=== PATIENT | female | born 1940 | race Caucasian/White ===

== ENCOUNTER 2019-12-29 06:45 | Day surgery (SDC) | payer MEDICARE, BC ==
[2019-12-29] VITALS (10 sets, daily range): BP systolic 91–127; BP diastolic 55–74; PULSE 72–111; TEMP 97.8–98.4
[~2019-12-29] VITALS: Ht 172.7 cm; Wt 79.5 kg
--- NOTE | 2019-12-29 08:45 | NUR ---
TO RM AT 0725 FROM RADILOLOGY. CALL LIGHT IN REACH SON AT BEDSIDE.
[2019-12-29] MEDS ORDERED: PULMICORT0.5 MG/2 M IH (08:53)
[2019-12-29] MEDS ORDERED: BROVANA15 MCG/2 M IH (08:53)
[2019-12-29] MEDS ORDERED: FLONASEALLERGY NS (08:54)
[2019-12-29] MEDS ORDERED: LASIX 80MG TABL80 MG PO (08:55)
[2019-12-29] MEDS ORDERED: GINGKO PO (08:56)
[2019-12-29] MEDS ORDERED: XALATAN EYE DROPS OD (08:56)
[2019-12-29] MEDS ORDERED: TOPROL XL 50MG50 MG PO (08:57)
[2019-12-29] MEDS ORDERED: LIPITOR20 MG PO (08:58)
[2019-12-29] MEDS ORDERED: NORCO 325 MG-51 TAB PO (08:58)
[2019-12-29] MEDS ORDERED: OXYGEN MC (08:59)
[2019-12-29] MEDS ORDERED: PREVACID 30MG30 M1 PO (09:00)
[2019-12-29] MEDS ORDERED: THEO-24400 MG PO (09:02)
[2019-12-29] MEDS ORDERED: PROPYLTHIOURACI50 M1 PO (09:02)
[2019-12-29] MEDS ORDERED: ZETIA 10MG TAB10 MG PO (09:03)
[2019-12-29] MEDS ORDERED: BETIMOL 0.5% OPH5 ML OD (09:03)
[2019-12-29] MEDS ORDERED: MULTIPLE VITAMI1 CAP PO (09:04)
[2019-12-29] MEDS ORDERED: ASPIRIN E.C. 8181 MG PO (09:05)
[2019-12-29] MEDS ORDERED: CALCIUM 600MG+D1 TAB PO (09:05)
[2019-12-29] MEDS ORDERED: EPA FISH OIL1 SGL PO (09:06)
[2019-12-29] MEDS ORDERED: ADVIL200 MG PO (09:07)
--- NOTE | 2019-12-29 09:09 | NUR ---
SON LEFT FOR AN APPOINTMENT PATIENT ON TABLET
--- NOTE | 2019-12-29 18:51 | NUR ---
Pt came to the floor at 1740. Pt was awake and talking. She stated that she had no pain at the time. Pt vitals were within normal limits. Gauze dressings to left side of her chest, dressings were clean dry and intact Pts family at bedside. Pt was able to drink water without any complications. Pt did request a milkshake and a chocolate milkshake was given. Pt has 2 YOSI drains numbered #1 and #2 both were emptied and there was 10cc out of each. Pt shift assessment was done.IV was disontinued, pt is currently drinking fluids. Pt is currently sitting up in bed talking with family. Call light within reach and bed in lowest position.
[2019-12-29] MEDS ORDERED: MIRALAX PA17 GM/Dose PO (20:15)
[2019-12-29] MEDS ORDERED: COLACE 100100 MG/CAP PO (20:16)
--- NOTE | 2019-12-29 21:00 | NUR ---
PATIENT TAKING ORAL FLUIDS WELL, INCLUDING JELLO, APPLESAUCE AND BROTH. SL TO RIGHT WRIST WITHOUT REDNESS OR SWELLING. WEARS OXYGEN AT HOME AND HAS 2L/NC ON. LEFT BREAST DRSG D/I, YOSI DRAINS X2 TO BULB SUCTION. IS ALERT AND ORIENTED X4. DENIES PAIN AT THIS TIME.
--- NOTE | 2019-12-30 01:37 | NUR ---
Pt resting with eyes closed. Denies need for pain meds at this time.
[2019-12-30 03:25] VITALS: BP 99/60; PULSE 89; TEMP 98
--- NOTE | 2019-12-30 04:00 | NUR ---
Assisted to bathroom, voids and back to bed. Emptied both YOSI drains at this time. SL to right wrist without redness or swelling.
--- NOTE | 2019-12-30 07:49 | NUR ---
Sitting up in bed with eyes open watching TV. Denies having pain, has small discomfort on left side near back but thinks that is due to leaning on her side, does not describe it as a pain. Dressing to left breast CDI. YOSI drains x2 to left breast area both compressed with bloody discharge in bulb. Small amount of drainage noted on dressing at YOSI site. Patient has a dry nonproductive cough that she says is normal for her. Denies any needs at this time.
[2019-12-30 07:57] VITALS: BP 113/63; PULSE 100; TEMP 98.3
--- NOTE | 2019-12-30 08:00 | NUR ---
Patient blood pressure 113/63, pulse 100. Spoke with Dr. Araujo and he says that we may give her metoprolol ER 50mg and Lasix 80mg.
--- NOTE | 2019-12-30 08:58 | NUR ---
URVASHI met with the patient to discuss discharge plan. The patient lives alone in [place]. She states that her , Benedict, resides at the [facility] and that her son (Jonathan) and daughter (Martha) also live in [place]. She reports independence with ADLs and has a cane, walker, and continous home oxygen from [facility]. The patient's PCP is Dr. Billy Boyle and she receives her medications at [facility]. She reports no difficulties obtaining her meds. The patient does not have advanced directives in EMR, but she states that she does have them completed. She states that her son, Jonathan (ph#[phone]), is her DPOA-HC. The patient plans to return home upon discharge and receive assistance from her daughter, Martha. No additional needs at this time.
--- NOTE | 2019-12-30 09:25 | NUR ---
Pt is post mastectomy and reports she is feeling pretty good. She was given the cancer gift bag provided by volunteer donor and a pillow for helping get a position of comfort for her operative side. She was provided with a [employer] catalog for mastectomy supplies and my contact information,. She was not interested in our support groups here but does reports having friends who have had breast cancer and can be of support.
--- NOTE | 2019-12-30 11:20 | NUR ---
Daughter in patient's room. Provided information on YOSI drain. Instructions on how to care for YOSI drain provided to patient and daughter. Daughter performed technique on one YOSI drain as I showed her technique on the other YOSI drain. Denied any questions at this time.
[2019-12-30 11:58] VITALS: BP 103/44; PULSE 91; TEMP 98.9
[2019-12-30] MEDS ORDERED: NORCO 325 MG-51 TAB PO (13:44)
--- NOTE | 2019-12-30 14:07 | NUR ---
Initial visit; Patient thanked [employer] for offering God's blessings and keeping her in [employer]'s prayers.
--- NOTE | 2019-12-30 14:20 | NUR ---
Discharge instructions reviewed with the patient and patient's daughter. Denies questions. Paperwork signed by patient. Discharge packet provided to patient and her daughter. IV site dc'd at this time. Catheter intact. Applied 2x2s to site and reinforced with coban. Blanca CNA, in room to assist patient in getting dressed. Drainage cup, tape, and drain sponges provided to patient to use at home.
--- NOTE | 2019-12-30 14:50 | NUR ---
Patient escorted to daughter's vehicle via wheelchair by OSIRIS Rios.
== END 2019-12-30 14:50 | disposition home or self-care (01) ==
LOC: SURG 06:45 → SDCO 06:45 → EDBD 14:00 → SDCO 14:00 → SURG 17:35 → SDCO 12-30 14:50
DX: C50.412 Malignant neoplasm of upper-outer quadrant of left female breast (principal); C77.3 Secondary and unspecified malignant neoplasm of axilla and upper limb lymph nodes; Z17.0 Estrogen receptor positive status [ER+]; M41.9 Scoliosis, unspecified; E03.9 Hypothyroidism, unspecified; I48.91 Unspecified atrial fibrillation; I47.1 Supraventricular tachycardia; Z79.899 Other long term (current) drug therapy; Z79.82 Long term (current) use of aspirin
CPT/HCPCS: OP; A9541; J0690; J1100; J1885; J2250; J2405; J2704; J2795; J3010; J7120